=== PATIENT | male | born 1970 | race Caucasian/White ===

== ENCOUNTER 2022-07-22 07:12 | Emergency (ER) | payer OTHER ==
[2022-07-22] MEDS ORDERED: LIDOCAINE 1% INJ 10MG/ML (30 ML VIAL-PF) SQ ONE (07:23)
[2022-07-22] MEDS ORDERED: DIPH,PERTUS(ACELL)TETVAC-LF 0.5 ML VIAL IM ONE (07:24)
[2022-07-22] MEDS ORDERED: LIDOCAINE/EPINEPHR/TETRACAINE 5 ML BOTTLE TOPICAL ONE (07:25)
[2022-07-22 07:27] VITALS: TEMP 97.7
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
[2022-07-22] MEDS ORDERED: BACITRACIN OINT 1 EACH PACKET TOPICAL ONE (08:46)
[2022-07-22 09:36] VITALS: BP 142/105; PULSE 82; RESP 18
== END 2022-07-22 09:30 | disposition home or self-care (01) ==
LOC: EC 07:12
DX: S01.81XA Laceration without foreign body of other part of head, initial encounter (principal); Z91.018 Allergy to other foods; X58.XXXA Exposure to other specified factors, initial encounter
CPT/HCPCS: 70450; 90715; 12011; 90471; 99283; J2001